=== PATIENT | male | born 1995 ===

== ENCOUNTER 2024-02-06 10:38 | Outpatient (AMB) | payer OTHER, SELFPAY ==
--- NOTE | 2024-02-06 11:01 | A.OFFPC_ITS ---
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 Accompanied by: Family/Other Allergies No Known Allergies Allergy (Verified 02/06/24 11:14) Medication List - Last Reconciled 02/06/24 by Joyce Blunt MD glipizide 2.5 mg PO DAILY metformin 1,000 mg PO BID Tobacco use date assessed: 02/06/24 Dental Screening Dental Screen Date: 02/06/24 Did you have a dental visit in the last 12 months?: No Did you have a dental problem in the last 6 months where you did not have access to dental care?: No Was dental information given to patient?: No HPI HPI Comments History of Present Illness Details The patient is a 28-year-old male presenting with Type 2 Diabetes Mellitus. He reports taking glipizide 2.5 mg once daily and metformin twice daily to manage his condition. He has a BMI of 34.8, categorized as Class I obesity, and weighs 229 lbs. Recently, his HbA1c level was 5.5, indicating good glycemic control, but lifestyle changes are advised due to weight issues. Additionally, he has hyperlipidemia, with LDL cholesterol measured at 101.60 mg/dL; considering his diabetic condition, the target LDL is 70 mg/dL or lower. There is a family history of cardiovascular disease, as his father has had a heart attack. The patient has insomnia and occasional challenges with sleep, reporting that he does not sleep well at night. He also has some developmental delay and is accompanied by family member. Has mild major depression, anxiety and insomnia and used to see psychiatry in [place] which he recently moved. He will schedule an appointment with Psychiatry and I will refill the list that he had for his mental health conditions. [facility] Surgical History No pertinent past surgical history Family History Mother No problems noted. Father Heart attack Maternal Grandmother Diabetes Family/Other Substance use disorder Mental health disorder Social History Housing: Apartment Alcohol intake: never Patient Tobacco Use Status: Never used Tobacco e-Cigarette/Vaping Use: Never Used Second Hand Smoke Exposure: No service: No Current occupational status: unemployed Cognitive needs: No Hearing needs: No Vision needs: No Questionnaire PHQ-9 Over the last 2 weeks, how often have you been bothered by any of the following problems? 1. Little interest or pleasure in doing things: several days 2. Feeling down, depressed, or hopeless: several days 3. Trouble falling or staying asleep, or sleeping too much: several days 4. Feeling tired or having little energy: several days 5. Poor appetite or overeating: several days 6. Feeling bad about yourself - or that you are a failure or have let yourself or your family down: not at all 7. Trouble concentrating on things, such as reading the newspaper or watching television: several days 8. Moving or speaking so slowly that other people could have noticed. Or the opposite - being so fidgety or restless that you have been moving around a lot more than usual: not at all 9. Thoughts that you would be better off or of hurting yourself in some way: not at all Total score: 6 Depression Screening Interpretation: Positive Depression Screening Follow-up: Existing condition and Follow-up Visit Requested Depression Screening Done: Yes 66499 - PHQ-9 Billing: Yes Source: Developed by Drs. Eyal Benson, Hortensia Taylor, Danny Salazar and colleagues, with an educational birdie from [employer]. Thrive Questionnaire Date Thrive assessed: 02/06/24 I am a: Patient What is your living situation today?: I have a steady place to live Within the past 12 months, did the food you bought not last and you didn't have the money to get more?: Never true Within the past 12 months, did you worry whether your food would run out before you got money to buy more?: I choose not to answer this question Do you have trouble paying for medicines?: I choose not to answer this question Do you have trouble getting transportation to medical appointments?: I choose not to answer this question Do you have trouble paying your heating and electricity bill?: I choose not to answer this question Do you have trouble taking care of your child, family member or friend?: No Do you have trouble with day-to-day activities such as bathing, preparing meals, shopping, managing finances, etc.?: No Are you currently unemployed and looking for a job?: Yes Are you interested in more education?: Yes Please select the resources that you would like help with: None Currently or been in a relationship where the following occur: No concerns reported THRIVE Score: 0 AUDIT C Alcohol Use Questionnaire (AUDIT-C) 1. How often do you have a drink containing alcohol?: Never Total Score: 0 Score Reviewed/Action Taken: No CAREY-7 AMB Questionnaire CAREY-7 Date CAREY - 7 assessed: 02/06/24 Feeling nervous, anxious, or on edge: 1 = Several days Not being able to stop or control worryin = Several days Worrying too much about different things: 1 = Several days Trouble relaxin = Several days Being so restless that it is hard to sit still: 0 = Not at all Becoming easily annoyed or irritable: 1 = Several days Feeling afraid as if something awful might happen: 0 = Not at all Total CAREY-7 score (0-4 normal; 5-9 mild; 10-14 moderate; 15-21 severe): 5 Source: Developed by Drs. Eyal Benson, Hortensia Taylor, Danny Salazar and colleagues, with an educational birdie from [employer]. CAREY-7 Assessment Billing CAREY-7 Assessment Tool: CAREY-7 Assessment 94564 Review of Systems Const All systems reviewed & are unremarkable except as noted in HPI and below Card Denies chest pain at rest, Denies chest pain with activity, Denies edema, Denies irregular heart rhythm, Denies claudication, Denies dyspnea, Denies dyspnea on exertion, Denies orthopnea, Denies paroxysmal nocturnal dyspnea and Denies slow heart rate Resp Denies cough, Denies dyspnea and Denies dyspnea on exertion Musc Denies abnormal gait, Denies atrophy, Denies deformity and Denies limited range of motion Skin/Breast Denies bleeding lesions, Denies changing lesions and Denies rash Neuro Denies abnormal gait, Denies behavioral changes and Denies lack of coordination Psych Reports abnormal sleep pattern, Reports anxiety, Denies behavioral changes and Reports depression Physical exam (Primary Care) Vital Signs: Last Vital Signs BP 130/82 02/06/24 11:02 BMI result Body Mass Index 34.8 BMI Assessment/Plan discussion: High BMI High, discussed plan: lifestyle, weight reduction, dietary and physical activity Tobacco/Smoking Status: Tobacco use Status Tobacco use date assessed 02/06/24 02/06/24 11:10 Patient Tobacco Use Status Never used Tobacco 02/06/24 11:10 e-Cigarette/Vaping Use Never Used 02/06/24 11:10 PHQ-9: PHQ-9 Score PHQ-9: Total score 6 02/06/24 12:01 Depression Screening Interpretation: Positive Depression Screening Follow-up: Existing condition and Follow-up Visit Requested Thrive Assessment: Date of Thrive Assessment Date Thrive assessed 02/06/24 02/06/24 11:10 Currently or been in a relationship where the following occur: No concerns reported Resp Effort & Inspection: normal respiratory effort Auscultation: clear to auscultation bilaterally Cardio Jugular venous distension: no JVD Rate: regular rate Rhythm: regular rhythm Heart sounds: S1 normal heart sound present and S2 normal heart sound present Extrem General: Yes full ROM Office Procedures Flu Questionnaire Does the patient have a severe egg allergy?: No Does the patient have severe life threatening allergies?: No Does the patient have a fever or illness today?: No Has the patient ever had Guillain-[place] Syndrome?: No Has the patient ever had any past reaction to a flu shot?: No Results AMB Hemoglobin A1c AMB Hemoglobin A1c 5.5 % Last Edit by JOSSY Blair on 02/06/24 11:2 8 Immunizations Fluarix Triv [id number] (PF) 45 mcg (15 mcg x 3)/0.5 mL IM syringe Performing Provider: Joyce Blunt MD [facility] Administered by: JOSSY Patel on 02/06/24 11:45 Dose Route Admin Location Dispensed Lot Number Expiration Date [facility] Inspector Multifocal Lens 0.5 mL IM Left Deltoid 0.5 mL [id number] 08/31/24 [id number] General Assembly VIS Given Date VIS Provided VIS Publication Date 02/06/24 Single Vaccine 20 Eligibility Eligibility Date Funding Source Not [facility] Eligible 02/06/24 Private Results Reviewed Results Reviewed: Laboratory Last Values Hgb A1c (Clinic) 5.5 % (4.0-6.0) 02/06/24 11:15 Coding Level of Care Code New Pt Level 4 (00475) Complex EM visit Add On G2211 Diagnoses Type 2 diabetes mellitus, without long-term current use of insulin E11.9 Class 1 obesity with body mass index (BMI) of 34.0 to 34.9 in adult E66.811; Z68.34 Mild recurrent major depression F33.0 CAREY (generalized anxiety disorder) F41.1 Insomnia G47.00 Additional Codes CAREY-7 Assessment Billing - CAREY-7 Assessment Tool: CAREY-7 Assessment 24132 ([id number]) PHQ-9 - 55329 - PHQ-9 Billing: Yes ([id number]) Time Spent (min) 24 Assessment & Plan Assessment & Plan (1) Type 2 diabetes mellitus, without long-term current use of insulin: Code(s): E11.9 - Type 2 diabetes mellitus without complications Category: Medical (2) Class 1 obesity with body mass index (BMI) of 34.0 to 34.9 in adult: Code(s): E66.811 - Obesity, class 1; Z68.34 - Body mass index [BMI] 34.0-34.9, adult Category: Medical (3) Mild recurrent major depression: Code(s): F33.0 - Major depressive disorder, recurrent, mild Category: Medical (4) CAREY (generalized anxiety disorder): Code(s): F41.1 - Generalized anxiety disorder Category: Medical (5) Insomnia: Code(s): G47.00 - Insomnia, unspecified Category: Medical Plan - Type 2 Diabetes Mellitus: Continue current medications, glipizide, and metformin. Consider lifestyle modifications for weight reduction. - Obesity: Discussed the importance of weight management strategies. - Hyperlipidemia: Initiate a lipid-lowering agent to reduce LDL below 70 mg/dL, considering diabetic status. - Insomnia: Suggested starting sertraline as it assists with both depression, anxiety, and sleep improvement. - Positive family history of heart disease: Monitor cardiovascular risks due to familial predisposition and proactively manage LDL levels. Patient was informed and verbally consented to the use of an ambient scribe for clinic note documentation during this visit. During the visit, I discussed the patient?s current condition and the importance of maintaining a multidisciplinary approach to managing Type 2 Diabetes, obesity, and hyperlipidemia. I emphasized the significance of lowering LDL to mitigate cardiovascular risk, especially given the family history of heart disease. We reviewed the benefits of continuing with the current diabetic medication regimen and the potential addition of a lipid-lowering agent. The patient expressed some difficulty with sleep, leading us to consider initiating sertraline for mood and sleep disturbances. Follow-up labs have been scheduled to monitor protein levels in future visits, and discussions on lifestyle adjustments, particularly weight management, were conducted. The patient was in formed about the risks associated with his conditions and the benefits of the proposed management strategies. Orders: Orders AMB Hemoglobin A1c Today E11.9 - Type 2 diabetes mellitus without complications Lipid Panel 4 Months E78.5 - Hyperlipidemia, unspecified Microalbumin, Random (w Creat) 4 Months R80.9 - Proteinuria, unspecified Comprehensive [place]. Panel Fast 4 Months E11.9 - Type 2 diabetes mellitus w ithout complications Influenza [id number] Immunization Today Z23 - Encounter for immunization Medications: New sertraline 50 mg PO DAILY 90 days 90 tabs 1RF F33.0 - Major depressive disorder, recurrent, mild, F41.1 - Generalized anxiety disorder atorvastatin 10 mg PO BEDTIME 90 days 90 tabs 1RF risperidone 0.5 mg PO BEDTIME 90 days 90 tabs 1RF G47.00 - Insomnia, unspecified Patient Instructions: - Continue current diabetes medications as prescribed. - Initiate the medication prescribed for cholesterol management. - Start sertraline for sleep and mood management as discussed. - Focus on weight management strategies including dietary changes and exercise. - Follow up with laboratory testing as scheduled for monitoring purposes.
[2024-02-06 11:02] VITALS: BP 130/82; BMI 34.8
== END 2024-02-06 11:47 | disposition home or self-care (01) ==
PROVIDERS: Visit Provider Internal Medicine
DX: E11.9 Type 2 diabetes mellitus without complications (principal); E66.811 Obesity, class 1; Z68.34 Body mass index [BMI] 34.0-34.9, adult; F33.0 Major depressive disorder, recurrent, mild; F41.1 Generalized anxiety disorder; G47.00 Insomnia, unspecified; Z23 Encounter for immunization

== ENCOUNTER → 2024-02-06 10:38 | Outpatient (BNVA) | payer OTHER, SELFPAY | PROVIDERS: Visit Provider Internal Medicine | DX: Z23 Encounter for immunization (principal); E11.9 Type 2 diabetes mellitus without complications; E66.811 Obesity, class 1; Z68.34 Body mass index [BMI] 34.0-34.9, adult; F33.0 Major depressive disorder, recurrent, mild; F41.1 Generalized anxiety disorder; G47.00 Insomnia, unspecified; Z71.3 Dietary counseling and surveillance | CPT/HCPCS: 83036; 90471; 90656; 96127; 99202 ==

== ENCOUNTER 2024-06-27 08:16 | Outpatient (REF) | payer OTHER, SELFPAY ==
[2024-06-27 09:39] LABS: Alanine Aminotransferase 43 U/L (0-40); Albumin Level 4.7 g/dL (3.5-5.0); Alkaline Phosphatase 49 U/L (39-117); Anion Gap 13 (12-20); Aspartate Amino Transferase 25 U/L (5-37); Bilirubin Total 0.9 mg/dL (0.0-1.0); Blood Urea Nitrogen 16 mg/dL (9-16); Calcium 10.5 mg/dL (8.4-10.2); Carbon Dioxide 28 mmol/L (22-29); Chloride 105 mmol/L (96-108); Cholesterol 101 mg/dL (<200); Estimated Glomerular Filt Rate > 60; Glucose Fasting 85 mg/dL (60-99); HDL Cholesterol 54 mg/dL (>40); LDL Cholesterol Calculated 36 mg/dL (<100); Potassium 4.6 mmol/L (3.3-5.1); Sodium 141 mmol/L (135-145); Total Protein 7.3 g/dL (6.5-8.0); Triglycerides 59 mg/dL (<150)
[2024-06-27 09:47] LABS: Creatinine Urine 334.91 mg/dL; Microalbum/Creatinine Ratio Ur 8.6 ug/mg cr (<30)
== END 2024-06-27 08:17 | disposition home or self-care (01) ==
LOC: HO.LAB 08:16
PROVIDERS: PCP Internal Medicine; Visit Provider Internal Medicine
DX: R80.9 Proteinuria, unspecified (principal); E11.9 Type 2 diabetes mellitus without complications; E78.5 Hyperlipidemia, unspecified
CPT/HCPCS: 36415; 80053; 80061; 82043; 82570

== ENCOUNTER 2024-07-22 09:14 | Outpatient (REF) | payer OTHER, SELFPAY ==
[2024-07-22 11:34] LABS: Creatinine Urine 149.63 mg/dL; Microalbum/Creatinine Ratio Ur 6.6 ug/mg cr (<30)
[2024-07-22 12:05] LABS: Alanine Aminotransferase 34 U/L (0-40); Albumin Level 4.2 g/dL (3.5-5.0); Alkaline Phosphatase 45 U/L (39-117); Anion Gap 12 (12-20); Aspartate Amino Transferase 21 U/L (5-37); Bilirubin Total 0.8 mg/dL (0.0-1.0); Blood Urea Nitrogen 20 mg/dL (9-16); Calcium 9.4 mg/dL (8.4-10.2); Carbon Dioxide 27 mmol/L (22-29); Chloride 106 mmol/L (96-108); Cholesterol 96 mg/dL (<200); Estimated Glomerular Filt Rate > 60; Glucose Fasting 101 mg/dL (60-99); HDL Cholesterol 48 mg/dL (>40); LDL Cholesterol Calculated 38 mg/dL (<100); Potassium 4.5 mmol/L (3.3-5.1); Sodium 140 mmol/L (135-145); Total Protein 6.6 g/dL (6.5-8.0); Triglycerides 53 mg/dL (<150)
== END 2024-07-22 09:15 | disposition home or self-care (01) ==
LOC: HO.LAB 09:14
PROVIDERS: PCP Internal Medicine; Visit Provider Internal Medicine
DX: E11.9 Type 2 diabetes mellitus without complications (principal); E78.5 Hyperlipidemia, unspecified; R80.9 Proteinuria, unspecified
CPT/HCPCS: 36415; 80053; 80061; 82043; 82570

== ENCOUNTER 2024-08-04 10:41 | Outpatient (AMB) | payer OTHER, SELFPAY ==
--- NOTE | 2024-08-04 11:03 | MHC.PC.OV ---
Vital Signs 08/04/24 11:05 Height 5 ft 8 in Weight 207 lb BMI 31.5 BP 128/80 Blood Pressure Location Lt brachial Position Sitting Intake Visit Reasons: Annual physical Intake Note: Patient here for an annual physical exam Monitoring Tech Required: No Accompanied by: Family/Other Allergies No Known Allergies Allergy (Verified 08/04/24 11:19) Medication List - Last Reconciled 08/04/24 by Joyce Blunt MD atorvastatin 10 mg PO BEDTIME 90 days glipizide 2.5 mg PO DAILY 90 days metformin 1,000 mg PO BID 90 days risperidone 0.5 mg PO BEDTIME 90 days sertraline 50 mg PO DAILY 90 days Tobacco use date assessed: 08/04/24 Dental Screening Dental Screen Date: 08/04/24 Did you have a dental visit in the last 12 months?: No Did you have a dental problem in the last 6 months where you did not have access to dental care?: No Was dental information given to patient?: Yes HPI HPI Comments History of Present Illness Details The patient is a 29-year-old male presenting for his annual physical examination. He has a history of type 2 diabetes mellitus, currently managed with metformin taken twice daily and glipizide, which I have decided to discontinue during this visit. His recent A1c level is 4.8%, indicating good glycemic control, and his fasting blood glucose is 101 mg/dL. The patient reports no episodes of chest pain, dyspnea, fever, or cough, and urinates more frequently than usual. There is no history of previous surgeries. During the visit, the patient also mentioned adherence to atorvastatin for managing hyperlipidemia. His latest LDL cholesterol level is 38 mg/dL, showcasing effective lipid control. Additionally, the patient has been addressing major depressive disorder with sertraline, and there has been an improvement in his condition, as he reports minimal depressive symptoms. He also takes risperidone, though the specific indication within this conversation was not detailed. A family history reveals that the patient's father passed due to a myocardial infarction, and his mother likely has diabetes, though she is asymptomatic. The patient has no history of smoking or tobacco use. - Administer tetanus vaccine today as it has been over 10 years since the last dose. - Scheduled eye examination for April 2025. - Glycemic control monitored through biannual laboratory tests. - Continue medication adherence for lipid and glucose management. [facility] Surgical History No pertinent past surgical history Family History Mother No problems noted. Father Heart attack Maternal Grandmother Diabetes Family/Other Substance use disorder Mental health disorder Social History Housing: Apartment Alcohol intake: never Patient Tobacco Use Status: Never used Tobacco e-Cigarette/Vaping Use: Never Used Second Hand Smoke Exposure: No service: No Current occupational status: unemployed Cognitive needs: No Hearing needs: No Vision needs: No Questionnaire PHQ-9 Over the last 2 weeks, how often have you been bothered by any of the following problems? 1. Little interest or pleasure in doing things: more than half the days 2. Feeling down, depressed, or hopeless: not at all 3. Trouble falling or staying asleep, or sleeping too much: not at all 4. Feeling tired or having little energy: not at all 5. Poor appetite or overeating: not at all 6. Feeling bad about yourself - or that you are a failure or have let yourself or your family down: not at all 7. Trouble concentrating on things, such as reading the newspaper or watching television: not at all 8. Moving or speaking so slowly that other people could have noticed. Or the opposite - being so fidgety or restless that you have been moving around a lot more than usual: not at all 9. Thoughts that you would be better off or of hurting yourself in some way: not at all Total score: 2 Depression Screening Interpretation: Negative Depression Screening Done: Yes 60783 - PHQ-9 Billing: Yes Source: Developed by Drs. Eyal Benson, Hortensia Taylor, Danny Salazar and colleagues, with an educational birdie from [employer]. Thrive Questionnaire Date Thrive assessed: 08/04/24 I am a: Patient What is your living situation today?: I have a steady place to live Within the past 12 months, did the food you bought not last and you didn't have the money to get more?: I choose not to answer this question Within the past 12 months, did you worry whether your food would run out before you got money to buy more?: I choose not to answer this question Do you have trouble paying for medicines?: No Do you have trouble getting transportation to medical appointments?: No Do you have trouble paying your heating and electricity bill?: No Do you have trouble taking care of your child, family member or friend?: No Do you have trouble with day-to-day activities such as bathing, preparing meals, shopping, managing finances, etc.?: No Are you currently unemployed and looking for a job?: I choose not to answer this question Are you interested in more education?: I choose not to answer this question Please select the resources that you would like help with: Transportation and None Currently or been in a relationship where the following occur: No concerns reported THRIVE Score: 0 AUDIT C Alcohol Use Questionnaire (AUDIT-C) 1. How often do you have a drink containing alcohol?: Never Total Score: 0 Score Reviewed/Action Taken: No CAREY-7 AMB Questionnaire CAREY-7 Date CAREY - 7 assessed: 08/04/24 Feeling nervous, anxious, or on edge: 0 = Not at all Not being able to stop or control worryin = Not at all Worrying too much about different things: 0 = Not at all Trouble relaxin = Not at all Being so restless that it is hard to sit still: 0 = Not at all Becoming easily annoyed or irritable: 0 = Not at all Feeling afraid as if something awful might happen: 0 = Not at all Total CAREY-7 score (0-4 normal; 5-9 mild; 10-14 moderate; 15-21 severe): 0 Source: Developed by Drs. Eyal Benson, Hortensia Taylor, Danny Salazar and colleagues, with an educational birdie from [employer]. CAREY-7 Assessment Billing CAREY-7 Assessment Tool: CAREY-7 Assessment 49618 Review of Systems Const All systems reviewed & are unremarkable except as noted in HPI and below Card Denies chest pain at rest, Denies chest pain with activity, Denies edema, Denies irregular heart rhythm, Denies claudication, Denies dyspnea, Denies dyspnea on exertion, Denies orthopnea, Denies paroxysmal nocturnal dyspnea and Denies slow heart rate Resp Denies cough, Denies dyspnea and Denies dyspnea on exertion GI Denies abdominal pain, Denies change in bowel habits, Denies excessive flatus, Denies nausea and Denies vomiting Denies urinary hesitancy, Denies urinary incontinence and Denies urinary urgency Musc Denies abnormal gait, Denies atrophy, Denies deformity and Denies limited range of motion Skin/Breast Denies bleeding lesions, Denies changing lesions and Denies rash Neuro Denies abnormal gait and Denies lack of coordination Physical exam (Primary Care) Vital Signs: Last Vital Signs BP 128/80 08/04/24 11:05 BMI result Body Mass Index 31.5 Tobacco/Smoking Status: Tobacco use Status Tobacco use date assessed 08/04/24 08/04/24 11:14 Patient Tobacco Use Status Never used Tobacco 08/04/24 11:14 e-Cigarette/Vaping Use Never Used 08/04/24 11:14 PHQ-9: PHQ-9 Score PHQ-9: Total score 2 08/04/24 12:17 Depression Screening Interpretation: Negative Thrive Assessment: Date of Thrive Assessment Date Thrive assessed 08/04/24 08/04/24 11:14 Currently or been in a relationship where the following occur: No concerns reported [facility] Head: Yes normal to inspection, Yes normocephalic and Yes atraumatic Ears: external ears normal Eyes General: appearance normal, both eyes and all related structures Eyelids: Yes eyelids normal Conjunctivae: conjunctivae normal Neck Neck: Yes normal visual inspection and Yes supple Resp Effort & Inspection: normal respiratory effort Auscultation: clear to auscultation bilaterally Cardio Jugular venous distension: no JVD Rate: regular rate Rhythm: regular rhythm Heart sounds: S1 normal heart sound present and S2 normal heart sound present GI Inspection: Yes normal to inspection Palpation (GI): Soft to palpation and nontender Auscultation: normal bowel sounds Skin General skin exam: no rashes or lesions noted Neuro General: no focal motor deficits Extrem General: Yes full ROM Psych Appearance: grossly normal Results AMB Hemoglobin A1c AMB Hemoglobin A1c 4.8 % Last Edit by JOSSY Blair on 08/04/24 11:18 Immunizations Boostrix Tdap 2.5 Lf unit-8 mcg-5 Lf/0.5 mL intramuscular syringe Performing Provider: Joyce Blunt MD [facility] Administered by: Mira Cabrera LPN on 08/04/24 11:43 Dose Route Admin Location Dispensed Lot Number Expiration Date [employer] Employee [employer] Intern 0.5 mL IM Left Deltoid 0.5 mL [id number] 10/30/26 [id number] [employer] VIS Given Date VIS Provided VIS Publication Date 08/04/24 Single Vaccine 20 Eligibility Eligibility Date Funding Source Not [facility] Eligible 08/04/24 Private Results Reviewed Results Reviewed: Laboratory Last Values Hgb A1c (Clinic) 4.8 % (4.0-6.0) 08/04/24 11:03 Coding Level of Care Code Est Pt Prev Care [id number]([id number]) Diagnoses Physical exam Z00.00 Mild recurrent major depression F33.0 Type 2 diabetes mellitus, without long-term current use of insulin E11.9 Additional Codes CAREY-7 Assessment Billing - CAREY-7 Assessment Tool: CAREY-7 Assessment 81897 ([id number]) PHQ-9 - 01638 - PHQ-9 Billing: Yes ([id number]) Time Spent (min) 31 Assessment & Plan Assessment & Plan (1) Physical exam: Code(s): Z00.00 - Encounter for general adult medical examination without abnormal findings Category: Medical (2) Mild recurrent major depression: Code(s): F33.0 - Major depressive disorder, recurrent, mild Category: Medical (3) Type 2 diabetes mellitus, without long-term current use of insulin: Code(s): E11.9 - Type 2 diabetes mellitus without complications Category: Medical Plan The patient's type 2 diabetes mellitus management will now exclude glipizide, continuing with metformin. Hyperlipidemia therapy with atorvastatin remains unchanged. His stable mood under sertraline and risperidone warrants the continuation of these medications. A tetanus booster was given, and a preventive eye exam is scheduled. Laboratory evaluations every six months will assist in sustaining current health standards. Emphasis on continuous medication adherence and health maintenance was conveyed. Patient was informed and verbally consented to the use of an ambient scribe for clinic note documentation during this visit. I discussed with the patient the current status of his chronic diseases, detailing the decision to stop glipizide due to his improved A1c level. Emphasized his excellent management of hyperlipidemia with atorvastatin. We explored the importance of regular screenings and follow-up to sustain optimal health. The future eye examination was scheduled and a tetanus booster was administered today. Reviewed the necessity of ongoing medications to stabilize mood and prevent complications. The patient understood and agreed to the plan. Orders: Orders AMB Hemoglobin A1c Today E11.9 - Type 2 diabetes mellitus without complications Microalbumin, Random (w Creat) 6 Months R80.9 - Proteinuria, unspecified Comprehensive Vandiver. Panel Fast 6 Months E11.9 - Type 2 diabetes mellitus without complications Lipid Panel 6 Months E78.5 - Hyperlipidemia, unspecified TDaP Immunization Today Z23 - Encounter for immunization Medications: Discontinued glipizide Discontinued Reason: Patient Completed Course 2.5 mg PO DAILY 90 days 90 tabs 1RF Patient Instructions: - Continue taking atorvastatin and metformin as prescribed. - Attend the scheduled eye examination in April 2025. - Remember to attend follow-up blood tests in six months. - Maintain adherence to prescribed psychiatric medications. - Seek care if experiencing any unusual symptoms, specifically chest pain or significant mood changes. - Practice healthy lifestyle choices, including regular physical activity and a balanced diet.
[2024-08-04 11:05] VITALS: BP 128/80; BMI 31.5
== END 2024-08-04 11:42 | disposition home or self-care (01) ==
LOC: HO.HMCH 10:42
PROVIDERS: PCP Internal Medicine; Visit Provider Internal Medicine
DX: Z00.00 Encounter for general adult medical examination without abnormal findings (principal); F33.0 Major depressive disorder, recurrent, mild; E11.9 Type 2 diabetes mellitus without complications; Z23 Encounter for immunization

== ENCOUNTER → 2024-08-04 10:41 | Outpatient (BNVA) | payer OTHER, SELFPAY | PROVIDERS: PCP Internal Medicine; Visit Provider Internal Medicine | DX: Z00.00 Encounter for general adult medical examination without abnormal findings (principal); E11.9 Type 2 diabetes mellitus without complications; E78.5 Hyperlipidemia, unspecified; F33.0 Major depressive disorder, recurrent, mild; Z23 Encounter for immunization; Z79.84 Long term (current) use of oral hypoglycemic drugs | CPT/HCPCS: 83036; 90471; 90715; 96127; 99395 ==

== ENCOUNTER 2024-09-02 15:26 | Emergency (ER) | payer OTHER, SELFPAY ==
--- NOTE | 2024-09-02 15:35 | ED_ITS ---
HPI - General Adult General Chief complaint: Animal Bite Stated complaint: dog bite right arm Time Seen by Provider: 09/02/24 15:41 Source: patient, RN notes reviewed, old records reviewed and heel seat sander Mode of arrival: ambulatory Limitations: language barrier History of Present Illness ED Provider: Tim HPI narrative: 29-year-old male presents for evaluation of a dog bite. Patient was bit on the right forearm by his mother's dog after the dog got tangled in the leash. The patient is a type 2 diabetic He has mild pain, no other wounds The dog is up to date on vaccinations Related Data Previous Rx's ?Medication ?Instructions ?Recorded risperidone 0.5 mg tablet 0.5 mg PO BEDTIME 90 days #9 0 tabs 02/06/24 sertraline 50 mg tablet 50 mg PO DAILY 90 days #90 t abs 02/06/24 metformin 1,000 mg tablet 1,000 mg PO BID 90 days #180 tabs 02/19/24 atorvastatin 10 mg tablet 10 mg PO BEDTIME 90 days #90 tabs 08/11/24 amoxicillin 875 mg-potassium 1 tab PO Q12H #10 tabs clavulanate 125 mg tablet Allergies Allergy/AdvReac Type Severity Reaction Status Date / Time No Known Allergies Allergy Verified 09/02/24 15:36 Review of Systems Musculoskeletal: Musculoskeletal: Denies arthralgias, Denies joint swelling and Denies limited range of motion Integumentary/Breasts: Skin/Breast: Reports wounds Psychiatric: Psychiatric: Denies anxiety PMFSH Past Medical History Surgical History No pertinent past surgical history Family History Family History Mother No problems noted. Father Heart attack Maternal Grandmother Diabetes Family/Other Substance use disorder Mental health disorder Social History Social History Housing: Apartment Alcohol intake: never Patient Tobacco Use Status: Never used Tobacco e-Cigarette/Vaping Use: Never Used Second Hand Smoke Exposure: No service: No Current occupational status: unemployed Cognitive needs: No Hearing needs: No Vision needs: No Physical Exam ED Vital Signs: Vital Signs - 24 hr 09/02/24 15:36 Temperature 98.2 F Pulse Rate 79 Respiratory Rate 16 Blood Pressure 146/81 H Pulse Oximetry 99 Oxygen Delivery Method Room Air BMI result Body Mass Index 31.7 Const General: healthy appearing, comfortable, no acute distress, alert and awake Nutritional Appearance: well nourished Orientation/consciousness: patient oriented x3 HENMT Head: Yes normocephalic and Yes atraumatic Eyes Eyelids: Yes eyelids normal Conjunctivae: conjunctivae normal Sclerae: sclerae normal Corneas: corneas normal Pupils: Equal, round and reactive pupils present EOM: EOMs intact bilaterally Neck Neck: Yes full ROM Resp Effort & Inspection: normal respiratory effort, able to speak in complete sentences and not labored Skin Other: There are very superficial abrasions/puncture james to the right forearm. There is some surrounding ecchymosis. No deep lacerations or deep puncture wounds. No drainage from the area, no bleeding General skin exam: elasticity normal Neuro General: patient oriented x3 Cranial nerves: Yes Equal, round and reactive pupils present and Yes Bilaterally intact EOM present Cognition (Neuro): normal cognition Extrem Other: Moving all extremities well without any obvious deformities Medical Decision Making Medical Decision Making MDM Narrative: 29-year-old male presents for evaluation of a dog bite to the right forearm. The dog is known as it it belongs with the patient's mother, the dog is up-to-date on rabies vaccinations. The patient is a type 2 diabetic, we will treat with a prophylactic dose of Augmentin b.i.d. x5 days Differential Diagnosis Differential Diagnoses: The differential diagnosis associated with the presentation includes Dog bite Puncture wound Abrasion Laceration Discharge Plan Discharge Clinical Impression: Dog bite Patient Disposition: Home, Self-Care Instructions: Animal Bite (ED) Additional Instructions: Take the antibiotic twice daily for 5 days. You may clean the wound with soap and water and you may apply topical antibiotic Follow-up with your primary doctor, return for new or worsening symptoms Prescriptions: New amoxicillin-pot clavulanate 875-125 mg tablet 1 tab PO Q12H Qty: 10 0RF No Action metformin 1,000 mg tablet 1,000 mg PO BID 90 Days Qty: 180 2RF atorvastatin 10 mg tablet 10 mg PO BEDTIME 90 Days Qty: 90 1RF risperidone 0.5 mg tablet 0.5 mg PO BEDTIME 90 Days Qty: 90 1RF sertraline 50 mg tablet 50 mg PO DAILY 90 Days Qty: 90 1RF Print Language: Citizen [place]
[2024-09-02 15:36] VITALS: BP 146/81; PULSE 79; RESP 16; TEMP 36.8; O2SAT 99; BMI 31.7
[2024-09-02 16:05] VITALS: BP 146/81; PULSE 79; RESP 16; TEMP 36.8; O2SAT 99
== END 2024-09-02 16:06 | disposition home or self-care (01) ==
PROVIDERS: Emergency Provider Emergency Medicine Emergency Medical Services; PCP Internal Medicine
DX: S51.851A Open bite of right forearm, initial encounter (principal); W54.0XXA Bitten by dog, initial encounter; Y93.9 Activity, unspecified; Y92.9 Unspecified place or not applicable; Y99.9 Unspecified external cause status
CPT/HCPCS: 99282; 99283